=== PATIENT | female | born 1955 | race Two or more races ===

== ENCOUNTER 2016-05-19 11:10 | Emergency (ER) | payer OTHER ==
[~2016-05-19] VITALS: Ht 154.9 cm; Wt 74.4 kg
[2016-05-19 11:53] VITALS: BP 149/94
== END 2016-05-19 12:03 | disposition home or self-care (01) ==
LOC: ER 11:11
DX: J20.9 Acute bronchitis, unspecified (principal); M54.5 Low back pain; G89.29 Other chronic pain

== ENCOUNTER 2016-08-13 07:22 | Emergency (ER) | payer OTHER ==
[~2016-08-13] VITALS: Ht 154.9 cm; Wt 73.9 kg
[2016-08-13 07:47] VITALS: BP 154/96
== END 2016-08-13 08:33 | disposition home or self-care (01) ==
LOC: ER 07:22
DX: J02.9 Acute pharyngitis, unspecified (principal); J32.1 Chronic frontal sinusitis; Z88.8 Allergy status to other drugs, medicaments and biological substances